=== PATIENT | female | born 1950 | race Caucasian/White ===

== ENCOUNTER 2018-05-18 13:44 | Inpatient (IN) | payer MEDICARE ==
[~2018-05-18] VITALS: Ht 170.2 cm; Wt 74.5 kg
[2018-05-18 14:23] LABS: BASOPHILS # (AUTO) 0.02 x10^3/uL (0-0.1); BASOPHILS % (AUTO) 0 % (0-1); EOSINOPHILS # (AUTO) 0.01 x10^3/uL (0-0.4); EOSINOPHILS % (AUTO) 0 % (1-7); LYMPHOCYTES # (AUTO) 1.82 x10^3/uL (1-3.4); LYMPHOCYTES % (AUTO) 36 % (22-44); MD NO; MEAN CORPUSCULAR HEMOGLOBIN 28.9 pg (27.0-34.8); MEAN CORPUSCULAR HGB CONC 34.2 g/dL (32.4-35.8); MEAN CORPUSCULAR VOLUME 84.5 fL (80-100); MEAN PLATELET VOLUME 7.5 fL (7.4-10.4); MONOCYTES # (AUTO) 0.38 x10^3/uL (0.2-0.8); MONOCYTES % (AUTO) 7 % (2-9); NEUTROPHILS # (AUTO) 2.86 x10^3/uL (1.8-6.8); NEUTROPHILS % (AUTO) 56 % (42-75); PLATELET COUNT 255 x10^3/uL (130-400); RED BLOOD COUNT 3.76 x10^6/uL (3.82-5.3); RED CELL DISTRIBUTION WIDTH 15.1 % (9.6-15.2)
[2018-05-18 14:33] LABS: ANION GAP 9 mmol/L (5-15); CALCIUM 8.8 mg/dL (8.5-10.1); CHLORIDE 109 mmol/L (98-107); CREATININE 0.94 mg/dL (0.55-1.02)
[2018-05-18 14:34] LABS: ALANINE AMINOTRANSFERASE 27 U/L (12-78); ALBUMIN 3.5 g/dL (3.4-5.0)
[2018-05-18 14:36] LABS: ALKALINE PHOSPHATASE 67 U/L (45-117); BILIRUBIN,TOTAL 0.6 mg/dL (0.2-1.0); TOTAL PROTEIN 6.7 g/dL (6.4-8.2)
[2018-05-18 14:37] LABS: INTERNATIONAL NORMALIZED RATIO 1.02 (0.93-1.1); PROTHROMBIN TIME 10.5 Seconds (9.6-11.5)
[2018-05-18] MEDS ORDERED: PANTOPRAZOLE 80 MG in SODIUM CHLORIDE 0.9% 100 ML IV SCH (15:18)
[2018-05-18] MEDS ORDERED: PANTOPRAZOLE 40 MG IV IVPush ONE (15:30)
[2018-05-18] MEDS ORDERED: SODIUM CHLORIDE 0.9% 1,000ML IVBOLUS ONE (15:30)
[2018-05-18] MEDS ORDERED: PANTOPRAZOLE 40 MG IV ONE (15:52)
[2018-05-18] MEDS ORDERED: RELAFEN PO (16:09)
[2018-05-18] MEDS ORDERED: HYDR200T72 PO (16:09)
[2018-05-18] MEDS ORDERED: AUGMENTIN PO (16:09)
[2018-05-18] MEDS ORDERED: CALCIUM PO (16:09)
[2018-05-18] MEDS ORDERED: TOFA5TAB PO (16:09)
[2018-05-18] MEDS ORDERED: TRAM50TA2 PO (16:09)
[2018-05-18] MEDS ORDERED: MULT-725 PO (16:09)
[2018-05-18] MEDS ORDERED: PANTOPRAZOLE 40 MG IV IVPush SCH (17:00)
[2018-05-18] MEDS ORDERED: ONDANSETRON 2MG/ML, 2ML IVPush PRN (17:00)
[2018-05-18] MEDS: PANTOPRAZOLE 80 MG in SODIUM CHLORIDE 0.9% 100 ML IV SCH (17:00)
[2018-05-18] MEDS ORDERED: PROMETHAZINE 25 MG/ML, 1ML IM PRN (17:00)
[2018-05-18] MEDS ORDERED: ENALAPRILAT 1.25 MG/ML, 2ML IVPush PRN (17:00)
[2018-05-18 17:21] VITALS: BP_SYST 116; BP_SYST 138; BP_DIAS 71; BP_DIAS 85; BP_DIAS 89
[2018-05-18 17:44] VITALS: BP 138/89
[2018-05-18] MEDS: SODIUM CHLORIDE 0.9% 1,000 ML IV SCH (19:31)
[2018-05-18 20:43] VITALS: BP_SYST 128; BP_SYST 130; BP_SYST 131; BP_DIAS 78; BP_DIAS 80; BP_DIAS 82
[2018-05-18] MEDS ORDERED: ZOLPIDEM 5MG TABLET PO ONE (21:00)
[2018-05-18] MEDS: HYDROXYCHLOROQUINE 200 MG TABLET PO SCH (21:10)
[2018-05-18] MEDS: (Tofacitinib Citrate** (Xeljanz**) 5 MG) PO SCH (21:11)
[2018-05-19 01:20] VITALS: BP 109/66
[2018-05-19] MEDS: PANTOPRAZOLE 80 MG in SODIUM CHLORIDE 0.9% 100 ML IV SCH (01:21)
[2018-05-19 05:08] LABS: BASOPHILS # (AUTO) 0.03 x10^3/uL (0-0.1); BASOPHILS % (AUTO) 1 % (0-1); EOSINOPHILS # (AUTO) 0.05 x10^3/uL (0-0.4); EOSINOPHILS % (AUTO) 2 % (1-7); LYMPHOCYTES % (AUTO) 40 % (22-44); MD NO; MEAN CORPUSCULAR HEMOGLOBIN 28.3 pg (27.0-34.8); MEAN CORPUSCULAR HGB CONC 33.9 g/dL (32.4-35.8); MEAN CORPUSCULAR VOLUME 83.5 fL (80-100); MEAN PLATELET VOLUME 7.5 fL (7.4-10.4); MONOCYTES # (AUTO) 0.32 x10^3/uL (0.2-0.8); MONOCYTES % (AUTO) 11 % (2-9); NEUTROPHILS # (AUTO) 1.38 x10^3/uL (1.8-6.8); NEUTROPHILS % (AUTO) 46 % (42-75); PLATELET COUNT 192 x10^3/uL (130-400); RED CELL DISTRIBUTION WIDTH 14.8 % (9.6-15.2)
[2018-05-19 05:10] LABS: ALANINE AMINOTRANSFERASE 22 U/L (12-78); ALBUMIN 2.8 g/dL (3.4-5.0); ANION GAP 7 mmol/L (5-15); CALCIUM 7.8 mg/dL (8.5-10.1); CHLORIDE 116 mmol/L (98-107); CREATININE 0.78 mg/dL (0.55-1.02)
[2018-05-19 05:11] LABS: ALKALINE PHOSPHATASE 49 U/L (45-117); BILIRUBIN,TOTAL 0.4 mg/dL (0.2-1.0); TOTAL PROTEIN 5.5 g/dL (6.4-8.2)
[2018-05-19] MEDS: SODIUM CHLORIDE 0.9% 1,000 ML IV SCH (05:38)
[2018-05-19 08:09] VITALS: BP 112/68
[2018-05-19] MEDS: HYDROXYCHLOROQUINE 200 MG TABLET PO SCH ×2 (09:00→21:08)
[2018-05-19] MEDS: CALCIUM CARBONATE 500 MG TAB.CHEW PO SCH (09:00)
[2018-05-19] MEDS: (Tofacitinib Citrate** (Xeljanz**) 5 MG) PO SCH ×2 (09:00→21:00)
[2018-05-19] MEDS ORDERED: AMPICILLIN/SULBACTAM 3 GM in SODIUM CHLORIDE 0.9% 100 ML IV SCH (11:30)
[2018-05-19] MEDS ORDERED: PROPOFOL 10 MG/ML, 20ML ONE (12:23)
[2018-05-19 13:35] VITALS: BP 138/78
[2018-05-19 13:50] VITALS: BP 144/87
[2018-05-19 14:47] VITALS: BP 144/75
[2018-05-19] MEDS: MOVIPREP POWDER 1 PREP KIT PO SCH (16:05)
[2018-05-19] MEDS: ACETAMINOPHEN 500 MG TABLET PO PRN (17:15)
[2018-05-19] MEDS ORDERED: AMOXICILLIN/CLAV 500-125MG TABLET PO SCH (17:30)
[2018-05-19] MEDS ORDERED: ZOLPIDEM 5MG TABLET PO PRN (17:30)
[2018-05-19] MEDS: AMOXICILLIN/CLAV 500-125MG TABLET PO SCH (17:41)
[2018-05-19 17:44] LABS: MEAN CORPUSCULAR HEMOGLOBIN 29.3 pg (27.0-34.8); MEAN CORPUSCULAR HGB CONC 34.5 g/dL (32.4-35.8); MEAN PLATELET VOLUME 7.2 fL (7.4-10.4); PLATELET COUNT 231 x10^3/uL (130-400); RED BLOOD COUNT 3.61 x10^6/uL (3.82-5.3); RED CELL DISTRIBUTION WIDTH 14.8 % (9.6-15.2)
[2018-05-19 19:07] VITALS: BP 137/76
[2018-05-19 19:43] LABS: BASOPHILS # (AUTO) 0.02 x10^3/uL (0-0.1); BASOPHILS % (AUTO) 1 % (0-1); EOSINOPHILS # (AUTO) 0.05 x10^3/uL (0-0.4); EOSINOPHILS % (AUTO) 1 % (1-7); LYMPHOCYTES # (AUTO) 0.97 x10^3/uL (1-3.4); LYMPHOCYTES % (AUTO) 28 % (22-44); MD SCAN; MONOCYTES # (AUTO) 0.36 x10^3/uL (0.2-0.8); MONOCYTES % (AUTO) 10 % (2-9); NEUTROPHILS % (AUTO) 60 % (42-75)
[2018-05-20] MEDS: AMOXICILLIN/CLAV 500-125MG TABLET PO SCH ×2 (01:29→09:41)
[2018-05-20 03:11] VITALS: BP 109/65
[2018-05-20] MEDS: MOVIPREP POWDER 1 PREP KIT PO SCH (05:07)
[2018-05-20] MEDS ORDERED: SODIUM CHLORIDE 0.9% 1,000 ML IV SCH (05:30)
[2018-05-20 05:32] LABS: BASOPHILS # (AUTO) 0.03 x10^3/uL (0-0.1); BASOPHILS % (AUTO) 1 % (0-1); EOSINOPHILS # (AUTO) 0.08 x10^3/uL (0-0.4); EOSINOPHILS % (AUTO) 3 % (1-7); LYMPHOCYTES # (AUTO) 1.23 x10^3/uL (1-3.4); LYMPHOCYTES % (AUTO) 39 % (22-44); MD NO; MEAN CORPUSCULAR HEMOGLOBIN 28.6 pg (27.0-34.8); MEAN CORPUSCULAR HGB CONC 34.1 g/dL (32.4-35.8); MEAN PLATELET VOLUME 7.5 fL (7.4-10.4); MONOCYTES # (AUTO) 0.34 x10^3/uL (0.2-0.8); MONOCYTES % (AUTO) 11 % (2-9); NEUTROPHILS # (AUTO) 1.44 x10^3/uL (1.8-6.8); NEUTROPHILS % (AUTO) 46 % (42-75); PLATELET COUNT 211 x10^3/uL (130-400); RED BLOOD COUNT 3.31 x10^6/uL (3.82-5.3)
[2018-05-20 07:22] VITALS: BP 142/79
[2018-05-20] MEDS: (Tofacitinib Citrate** (Xeljanz**) 5 MG) PO SCH (09:00)
[2018-05-20] MEDS: CALCIUM CARBONATE 500 MG TAB.CHEW PO SCH (09:00)
[2018-05-20] MEDS: HYDROXYCHLOROQUINE 200 MG TABLET PO SCH (09:00)
[2018-05-20] MEDS ORDERED: PROPOFOL 10 MG/ML, 20ML ONE (11:25)
[2018-05-20] MEDS ORDERED: BUDESONIDE 3 MG CAP DR.ER PO SCH (12:37)
[2018-05-20] MEDS: ACETAMINOPHEN 500 MG TABLET PO PRN (12:46)
[2018-05-20 12:54] VITALS: BP 95/65
[2018-05-20 13:05] VITALS: BP 145/88
[2018-05-20 13:32] LABS: HCT (SEDRATE) 30.1 % (34.6-47.8)
[2018-05-20 13:44] LABS: C-REACTIVE PROTEIN, QUANT 0.08 mg/dL (0.02-0.49)
[2018-05-20] MEDS ORDERED: OMNIPAQUE 350 MG/ML, 100ML BOTTLE ONE (14:56)
[2018-05-20] MEDS ORDERED: BUDE3CAP6 PO (15:59)
[2018-05-20] MEDS ORDERED: PANT40GR PO (15:59)
== END 2018-05-20 16:55 | disposition home or self-care (01) | DRG 385 ==
LOC: OR 15:53 → 4WST 15:54 → OR 16:55 → 4WST 16:59
PROVIDERS: ADMIT Family Medicine; ATTEND Family Medicine
PROC: 0DBK8ZX Excision of Ascending Colon, Via Natural or Artificial Opening Endoscopic, Diagnostic (ICD-10-PCS; 2018-05-19)
PROC: 0DBL8ZX Excision of Transverse Colon, Via Natural or Artificial Opening Endoscopic, Diagnostic (ICD-10-PCS; 2018-05-19)
PROC: 0DBN8ZX Excision of Sigmoid Colon, Via Natural or Artificial Opening Endoscopic, Diagnostic (ICD-10-PCS; 2018-05-19)
PROC: 0DBP8ZX Excision of Rectum, Via Natural or Artificial Opening Endoscopic, Diagnostic (ICD-10-PCS; 2018-05-19)
PROC: 0DBB8ZX Excision of Ileum, Via Natural or Artificial Opening Endoscopic, Diagnostic (ICD-10-PCS; 2018-05-19)
PROC: 0DBM8ZX Excision of Descending Colon, Via Natural or Artificial Opening Endoscopic, Diagnostic (ICD-10-PCS; 2018-05-19)
PROC: 0DBH8ZX Excision of Cecum, Via Natural or Artificial Opening Endoscopic, Diagnostic (ICD-10-PCS; 2018-05-19)
PROC: 0DJ08ZZ Inspection of Upper Intestinal Tract, Via Natural or Artificial Opening Endoscopic (ICD-10-PCS; principal; 2018-05-19 13:00)
DX: K50.00 Crohn's disease of small intestine without complications (principal); K57.31 Diverticulosis of large intestine without perforation or abscess with bleeding; D62 Acute posthemorrhagic anemia; I42.9 Cardiomyopathy, unspecified; K64.8 Other hemorrhoids; R73.9 Hyperglycemia, unspecified; M06.9 Rheumatoid arthritis, unspecified; Z79.1 Long term (current) use of non-steroidal anti-inflammatories (NSAID); Z90.49 Acquired absence of other specified parts of digestive tract; Z90.89 Acquired absence of other organs; Z80.0 Family history of malignant neoplasm of digestive organs; Z98.51 Tubal ligation status; Z79.899 Other long term (current) drug therapy; Z82.5 Family history of asthma and other chronic lower respiratory diseases; Z82.49 Family history of ischemic heart disease and other diseases of the circulatory system
CPT/HCPCS: 36415; 74177; 80053; 82607; 82728; 83540; 83550; 83735; 84630; 85014; 85018; 85025; 85610; 85651; 85730; 86140; 86480; 86706; 86850; 86900; 87340; 87517; 87806; 88305; 93005; 96365; 96375; J0295; J2704; Q9967; C9113; G0475; J7030